=== PATIENT | male | born 1970 | race Caucasian/White ===

== ENCOUNTER 2018-01-13 12:56 | Inpatient (IN) | payer OTHER ==
[2018-01-13 14:22] VITALS: BMI 33.5
--- NOTE | 2018-01-13 19:27 | HP ---
COWS - Scale Resting Pulse: 1= OR 81-100 Sweatin=Flushed/Facial Moisture Restless Observation: 3= Extraneous Movement Pupil Size: 1= Pupils >than Normal Bone or Joint Aches: 1= Mild Discomfort Runny Nose/ Eye Tearin= Runny Nose/Eyes GI Upset > 30mins: 3= Vomiting/Diarrhea Tremor Observation: 2= Slight Tremor Visible Yawning Observation: 2= >3x During Session Anxiety or Irritability: 2=Irritable/Anxious Goose Flesh Skin: 3=Piloerection COWS Score: 22 CIWA Score - CIWA Score Nausea/Vomitin-Int. Nausea w/Dry Heave Muscle Tremors: 4-Moderate,w/Arms Extend Anxiety: 4-Mod. Anxious/Guarded Agitation: 1-Slight > Activity Paroxysmal Sweats: 4-Forehead w/Sweat Beads Orientation: 1-Uncertain about Date Tacttile Disturbances: 0-None Auditory Disturbances: 1-Very Mild Visual Disturbances: 1-Very Mild Sensitivity Headache: 1-Very Mild CIWA-Ar Total Score: 21 Admission [facility] Chief Complaint: "withdrawal, I am here to detox from Benzo, opiates (Percocet) and alcohol." Allergies/Adverse Reactions: Allergies Allergy/AdvReac Type Severity Reaction Status Date / Time penicillin V [Penicillin V] Allergy Severe Difficulty Verified 01/13/18 17:22 Breathing shellfish derived Allergy Intermediate Swelling Verified 01/13/18 17:22 History of Present Illness: 47 yo male with opiate, heroin, klonopin, alcohol dependence is here for detox . Currently quit smoking a month a go, using 14mg nicotine patch. PMHX: herniates disc with back fusion, hx of fall from [facility] in 2012 and anxiety. Last detox [facility] January 2016. Denies suicidal / homicidal ideation or suicide attempts. Longest period of sobriety 8 years. - Ebola screening Have you traveled outside of the country in the last 21 days: No Have you had contact with anyone from an Ebola affected area: No Have you been sick,other than usual withdrawal symptoms: No Do you have a fever: No - Review of Systems Constitutional: Chills, Changes in sleep, Other (weight gain 30 lbs in the past year) EENT: reports: No Symptoms Reported Respiratory: reports: No Symptoms reported Cardiac: reports: No Symptoms Reported GI: reports: Poor Fluid Intake : reports: No Symptoms Reported Musculoskeletal: reports: Back Pain (chronic back pain) Integumentary: reports: No Symptoms Reported Neuro: reports: Tremors Endocrine: reports: Unexplained Weight Gain Hematology: reports: No Symptoms Reported Psychiatric: reports: Orientated x3, Anxious Other Systems: Reviewed and Negative Patient History - Patient Medical History Hx Anemia: No Hx Asthma: No Hx Chronic Obstructive Pulmonary Disease (COPD): No Hx Cancer: No Hx Cardiac Disorders: No Hx Congestive Heart Failure: No Hx Hypertension: No Hx Hypercholesterolemia: No Hx Pacemaker: No HX Cerebrovascular Accident: No Hx Seizures: No Hx Dementia: No Hx Diabetes: No Hx Gastrointestinal Disorders: No Hx Liver Disease: No Hx Genitourinary Disorders: No Hx Sexually Transmitted Disorders: No Hx Renal Disease (ESRD): No Hx Thyroid Disease: No Hx Human Immunodeficiency Virus (HIV): No Hx Hepatitis C: No Hx Depression: Yes Hx Suicide Attempt: No Hx Bipolar Disorder: Yes Hx Schizophrenia: No - Patient Surgical History Past Surgical History: Yes Hx Neurologic Surgery: No Hx Cataract Extraction: No Hx Cardiac Surgery: No Hx Lung Surgery: No Hx Breast Surgery: No Hx Breast Biopsy: No Hx Abdominal Surgery: No Hx Appendectomy: No Hx Cholecystectomy: No Hx Genitourinary Surgery: No Hx Section: No Hx Orthopedic Surgery: Yes (LEFT SHOULDER IN 2008, back fusion Dec 2016) Other Surgical History: left shoulder, left ankle and right hand Anesthesia Reaction: No - PPD History Previous Implant?: Yes Documented Results: Negative w/proof Date: 06/29/15 Results: 0 mm PPD to be Administered?: Yes - Reproductive History Patient is a Female of Child Bearing Age (11 -55 yrs old): No - Smoking Cessation Smoking history: Former smoker Have you smoked in the past 12 months: Yes Aproximately how many cigarettes per day: 10 If you are a former smoker, when did you quit?: December 2017 Cigars Per Day: 0 Hx Chewing Tobacco Use: No Initiated information on smoking cessation: Yes 'Breaking Loose' booklet given: 01/13/18 - Substance & Tx. History Hx Alcohol Use: Yes Hx Substance Use: Yes Substance Use Type: Alcohol, Heroin, Tranquilizers Hx Substance Use Treatment: Yes ([facility] January 2016) - Substances Abused Alcohol Route: Oral Frequency: Daily Amount used: liquor- 4 pints Age of first use: 20 Date of Last Use: 01/13/18 Heroin Route: Inhalation Frequency: Daily Amount used: 10 bags Age of first use: 26 Date of Last Use: 01/11/18 Benzodiazepine (Klonopin) Route: Oral Frequency: Daily Amount used: 7 - 8 tabs Age of first use: 37 Date of Last Use: 01/13/18 Oxycontin Route: Oral Frequency: Daily Amount used: 2 tabs ( Percocets takes 15 tabs, took 15 tabs today) Age of first use: 47 Date of Last Use: 01/13/18 Family Disease History - Family Disease History Family Disease History: Other: Father (ETOH DEPENDENT AND FROM CVA DUE TO RUPTURE ANEURYSM), Mother (nov, ) Admission Physical Exam [facility] - Vital Signs Vital Signs: Vital Signs - 24 hr 01/13/18 14:20 Temperature 97.2 F L Pulse Rate 100 H Respiratory 18 Rate Blood Pressure 202/109 - Physical General Appearance: Yes: Disheveled, Tremorous, Sweating, Anxious HEENTM: Yes: EOMI, Hearing grossly Normal, Normal ENT Inspection, Normocephalic , Normal Voice, Tm's normal Respiratory: Yes: Chest Non-Tender, Lungs Clear, Normal Breath Sounds, No Respiratory Distress, No Accessory Muscle Use Neck: Yes: No masses,lesions,Nodules, Trachea in good position Breast: Yes: Breast Exam Deferred Cardiology: Yes: Regular Rhythm, Regular Rate, S1, S2 Abdominal: Yes: Normal Bowel Sounds, Non Tender, Soft, Protuberent Genitourinary: Yes: Within Normal Limits (reports no urinary symptoms) Back: Yes: Normal Inspection, Other (surgical scar present , lower back) Musculoskeletal: Yes: full range of Motion, Gait Steady, Pelvis Stable Extremities: Yes: Normal Capillary Refill, Normal Inspection, Normal Range of Motion, Non-Tender 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, Fully Oriented, Motor Strength 5/5, Depressed Affect, Other (anxious) Integumentary: Yes: Normal Color, Dry, Warm Lymphatic: Yes: Within Normal Limits - Diagnostic (1) Difficulty sleeping Current Visit: Yes Status: Chronic (2) Sedative, hypnotic or anxiolytic dependence with withdrawal, uncomplicated Current Visit: Yes Status: Acute (3) Obese Current Visit: Yes Status: Chronic Qualifiers: Body mass index: BMI 33.0-33.9 (4) Chronic low back pain Current Visit: Yes Status: Chronic Qualifiers: Back pain laterality: left Sciatica presence: without sciatica Qualified Code(s): M54.5 - Low back pain; G89.29 - Other chronic pain; G89.29 - Other chronic pain (5) Alcohol dependence with uncomplicated withdrawal Current Visit: Yes Status: Acute (6) Opioid dependence with withdrawal Current Visit: Yes Status: Acute (7) Nicotine dependence Current Visit: Yes Status: Chronic Qualifiers: Nicotine product type: cigarettes Cleared for Admission [facility] - Detox or Rehab [facility] Level of Care: Medically Managed Detox Regimen/Protocol: Methadone/Librium [facility] Breath Alcohol Content Breath Alcohol Content: 108 Urine Drug Screen - Results Drug Screen Negative: No Urine Drug Screen Results: OPI-Opiates, TCA-Tricyclic Antidepress, OXY-Oxycodone
[2018-01-13] MEDS ORDERED: MAGNESIUM CITRATE 300 ML BOTTLE PO PRN (19:37)
[2018-01-13] MEDS ORDERED: METHADONE HCL 10 MG TABLET (FOR DETOX USE ONLY) PO ONE ×2 (19:37→23:00)
[2018-01-13] MEDS ORDERED: hydrOXYzine PAMOATE 50 MG CAPSULE (FP) PO PRN (19:37)
[2018-01-13] MEDS ORDERED: chlordiazePOXIDE HCL 25 MG CAPSULE PO ONE (19:37)
[2018-01-13] MEDS ORDERED: guaiFENesin/D-METHORPHAN HB 10 ML UNIT-DOSE CUPS PO PRN (19:37)
[2018-01-13] MEDS ORDERED: MAG HYDROX/AL HYDROX/SIMETH 30 ML UNIT-DOSE CUP PO PRN (19:37)
[2018-01-13] MEDS ORDERED: LOPERAMIDE HCL 2 MG CAPSULE PO PRN (19:37)
[2018-01-13] MEDS ORDERED: NICOTINE POLACRILEX 2 MG GUM BC PRN (19:37)
[2018-01-13] MEDS ORDERED: MENTHOL/PHENOL 1 EACH UD MM PRN (19:37)
[2018-01-13] MEDS ORDERED: MAGNESIUM HYDROX 2400MG/30ML ORAL SUSPENSION 30 ML CUP PO PRN (19:37)
[2018-01-13] MEDS ORDERED: ACETAMINOPHEN 325 MG TABLET (FP) PO PRN (19:37)
[2018-01-13] MEDS ORDERED: P-EPHED 60MG/TRIPROLIDI 2.5MG TABLET PO PRN (19:37)
[2018-01-13] MEDS ORDERED: IBUPROFEN 400 MG TABLET (FP) PO PRN (19:37)
[2018-01-13] MEDS: LIDOCAINE 5% TOPICAL PATCH TP SCH (20:23)
[2018-01-13] MEDS ORDERED: TIZANIDINE HCL 2 MG TABLET PO SCH ×2 (22:00)
[2018-01-13] MEDS: chlordiazePOXIDE HCL 25 MG CAPSULE PO SCH (22:35)
[2018-01-13] MEDS: THIAMINE HCL 100 MG TABLET (FP) PO SCH (22:35)
[2018-01-13] MEDS: LIDOCAINE PATCH REMOVAL MC SCH (22:39)
[2018-01-13 23:10] LABS: URINE APPEARANCE CLEAR; URINE BILIRUBIN NEGATIVE (NEGATIVE); URINE BLOOD NEGATIVE (NEGATIVE); URINE COLOR YELLOW; URINE GLUCOSE (UA) NEGATIVE (NEGATIVE); URINE KETONE NEGATIVE (NEGATIVE); URINE LEUK ESTERASE NEGATIVE (NEGATIVE); URINE NITRITE NEGATIVE (NEGATIVE); URINE PROTEIN NEGATIVE (NEGATIVE); URINE UROBILINOGEN NEGATIVE mg/dL (0.2-1.0)
[2018-01-14] MEDS: chlordiazePOXIDE HCL 25 MG CAPSULE PO SCH ×4 (05:58→22:26)
[2018-01-14 09:51] LABS: HEMATOCRIT 44.3 % (35.4-49); HEMOGLOBIN 14.7 GM/dL (11.7-16.9); MCH 31.2 pg (25.7-33.7); MCHC 33.3 g/dl (32.0-35.9); MEAN CELL VOLUME 93.8 fl (80-96); MEAN PLT VOLUME 7.4 fl (7.5-11.1); PLATELET COUNT 220 K/MM3 (134-434); RBC 4.72 M/mm3 (4.00-5.60); RDW 13.3 % (11.9-15.9); WHITE BLOOD COUNT 10.4 K/mm3 (4.0-10.0)
[2018-01-14] MEDS ORDERED: METHADONE HCL 10 MG TABLET (FOR DETOX USE ONLY) PO SCH (10:00)
[2018-01-14] MEDS: LIDOCAINE 5% TOPICAL PATCH TP SCH (10:32)
[2018-01-14] MEDS: PRENATAL VITAMINS W/ FOLIC ACID TABLET (FP) PO SCH (10:32)
[2018-01-14] MEDS: NICOTINE 14 MG/24 HOURS TOPICAL PATCH TD SCH (10:33)
[2018-01-14 11:36] LABS: CHLORIDE 103 mmol/L (98-107); POTASSIUM 3.8 mmol/L (3.5-5.1); SODIUM 141 mmol/L (136-145)
[2018-01-14 11:47] LABS: ALBUMIN 3.6 g/dl (3.4-5.0); ALK PHOS 86 U/L (45-117); ANION GAP 6 (8-16); BILIRUBIN,TOTAL 0.4 mg/dL (0.2-1.0); BLOOD UREA NITROGEN 12 mg/dL (7-18); CALCIUM 8.9 mg/dL (8.5-10.1); CO2 32 mmol/L (21-32); CREATININE 1.1 mg/dL (0.7-1.3); GLUCOSE,RANDOM 118 mg/dL (74-106); SGOT/AST 28 U/L (15-37); SGPT/ALT 70 U/L (12-78); TOT PROT 6.2 g/dl (6.4-8.2)
[2018-01-14] MEDS: chlordiazePOXIDE HCL 25 MG CAPSULE PO PRN (13:04)
--- NOTE | 2018-01-14 13:43 | CONSULT ---
[facility] Psychiatric Consult - Data Date of interview: 01/14/18 Admission source: [facility] Identifying data: Readmission to [facility] for this 47 y/o male seeking detox treatment on 3 for alcohol,benzodiazepine and opioid dependence.Patient is ,a father of one,domiciled,currently unemployed and supported on [facility] benefits. Substance Abuse History: Confirmed by francheska in this interview.See details in current [facility] report . Smoking history: Former smoker. Have you smoked in the past 12 months: Yes. Aproximately how many cigarettes per day: 10. If you are a former smoker, when did you quit?: December 2017. Cigars Per Day: 0. Hx Chewing Tobacco Use: No. Initiated information on smoking cessation: Yes. ' Breaking Loose' booklet given: 01/13/18. - Substance & Tx. History. Hx Alcohol Use: Yes. Hx Substance Use: Yes. Substance Use Type: Alcohol, Heroin, Tranquilizers. Hx Substance Use Treatment: Yes ([facility] January 2016). - Substances Abused. Alcohol. Route: Oral. Frequency: Daily. Amount used: liquor- 4 pints. Age of first use: 20. Date of Last Use: 01/13/18. Heroin. Route: Inhalation. Frequency: Daily. Amount used: 10 bags. Age of first use: 26. Date of Last Use: 01/11/18. Benzodiazepine (Klonopin). Route: Oral. Frequency: Daily. Amount used: 7 - 8 tabs. Age of first use: 37. Date of Last Use: 01/13/18. Oxycontin. Route: Oral. Frequency: Daily. Amount used : 2 tabs ( Percocets takes 15 tabs, took 15 tabs today). Age of first use: 47. Date of Last Use: 01/13/18 Medical History: Chronic back pain,spinal fusion and a history of orthosurgery ( left shoulder,left ankle and right hand). Psychiatric History: Patient admits to one psychiatric hospitalization at [facility] in [place].Diagnosed with Bipolar Disorder.Mr Burton gets his outpatient psychiatric services at the [facility] in [facility].Maintained on lithium,klonopin and trazodone.Doses not recalled by patient.No reported history of suicide attempts. Physical/Sexual Abuse/Trauma History: Patient denies. Additional Comment: Urine Drug Screen Results: OPI-Opiates, TCA-Tricyclic Antidepressant, OXY-Oxycodone.Noted. Mental Status Exam - Mental Status Exam Alert and Oriented to: Time, Place, Person Cognitive Function: Good Patient Appearance: Well Groomed Mood: Withdrawn, Anxious, Hopeful Affect: Mood Congruent Patient Behavior: Fatigued, Appropriate, Cooperative Speech Pattern: Clear, Appropriate Voice Loudness: Normal Thought Process: Intact, Goal Oriented Thought Disorder: Not Present Hallucinations: Denies Suicidal Ideation: Denies Homicidal Ideation: Denies Insight/Judgement: Poor Sleep: Poorly, Difficulty falling asleep Appetite: Good Muscle strength/Tone: Normal Gait/Station: Normal Psychiatric Findings - Problem List ([place] 1, 2,3) (1) Alcohol dependence with uncomplicated withdrawal Current Visit: Yes Status: Acute (2) Opioid dependence with withdrawal Current Visit: Yes Status: Acute (3) Sedative, hypnotic or anxiolytic dependence with withdrawal, uncomplicated Current Visit: Yes Status: Acute (4) Nicotine dependence Current Visit: Yes Status: Acute Qualifiers: Nicotine product type: cigarettes Substance use status: uncomplicated Qualified Code(s): F17.210 - Nicotine dependence, cigarettes, uncomplicated (5) Bipolar disorder Current Visit: Yes Status: Chronic Qualifiers: Active/Remission status: currently active Comment: As per records.History of non-adherence to medications. - Initial Treatment Plan Initial Treatment Plan: Records revisited.Psychoeducation and support.Detoxification in progress.Medications : trazodone 100 mg po hs + olanzapine 15 [address] po hs. [place] withdrawn (until result of Li level).Side effects/benefits of both drugs are discussed with patient.Made aware of risk of metabolic syndrome,priapism and cardiovascular adverse events.Mr Burton consented (verbally) to this plan of care.Recent pharmacy claims (11/06/17 at [facility] # [id number]) are reviewed.Medications verified with pharmacist at [phone] : lithium 300 mg / am + 600 mg / hs - olanzapine 15 mg/hs + trazodone 100 mg/hs ( refills picked up on 01/10/19).Observation.NO scripts required at discharge from [facility].
--- NOTE | 2018-01-14 13:52 | PN ---
[facility] CIWA - CIWA Score Nausea/Vomitin-No Nausea/No Vomiting Muscle Tremors: 3 Anxiety: 4-Mod. Anxious/Guarded Agitation: 2 Paroxysmal Sweats: 3 Orientation: 0-Oriented Tacttile Disturbances: 2-Mild Itch/Numbness/Burn Auditory Disturbances: 0-None Visual Disturbances: 3-Moderate Sensitivity Headache: 0-None Present CIWA-Ar Total Score: 17 S COWS - Scale Resting Pulse: 0= [place] 80 or Below Sweatin= Chills/Flushing Restless Observation: 1= Difficult to Sit Still Pupil Size: 0= Normal to Room Light Bone or Joint Aches: 2= Severe Diffuse Aches Runny Nose/ Eye Tearin= None GI Upset > 30mins: 2= Nausea/Diarrhea Tremor Observation of Outstretched Hands: 2= Slight Tremor Visible Yawning Observation: 2= >3x During Session Anxiety or Irritability: 2=Irritable/Anxious Goose Flesh Skin: 3=Piloerection COWS Score: 15 [facility] Progress Note (SOAP) Subjective: Tremors, Anxious, Stomach cramping, Diarrhea, Sweating, Fatigue, Interrupted Sleep. Objective: PT. A & O X 3. NO ACUTE DISTRESS. 01/14/18 13:51 Vital Signs Temperature 96.8 F L 01/14/18 09:55 Pulse Rate 76 01/14/18 09:55 Respiratory Rate 20 01/14/18 09:55 Blood Pressure 149/97 01/14/18 09:55 O2 Sat by Pulse Oximetry (%) Laboratory Tests 01/13/18 01/14/18 01/14/18 22:50 07:30 07:30 WBC 10.4 H RBC 4.72 Hgb 14.7 Hct 44.3 MCV 93.8 MCH 31.2 MCHC 33.3 RDW 13.3 Plt Count 220 MPV 7.4 L Sodium 141 Potassium 3.8 Chloride 103 Carbon Dioxide 32 D Anion Gap 6 L BUN 12 Creatinine 1.1 D Creat Clearance w eGFR > 60 Random Glucose 118 H Calcium 8.9 Total Bilirubin 0.4 AST 28 D ALT 70 D Alkaline Phosphatase 86 Total Protein 6.2 L Albumin 3.6 Urine Color Yellow Urine Appearance Clear Urine pH 6.0 Ur Specific [place] 1.021 Urine Protein Negative Urine Glucose (UA) Negative Urine Ketones Negative Urine Blood Negative Urine Nitrite Negative Urine Bilirubin Negative Urine Urobilinogen Negative Ur Leukocyte Esterase Negative RPR Titer 01/14/18 07:30 WBC RBC Hgb Hct MCV MCH MCHC RDW Plt Count MPV Sodium Potassium Chloride Carbon Dioxide Anion Gap BUN Creatinine Creat Clearance w eGFR Random Glucose Calcium Total Bilirubin AST ALT Alkaline Phosphatase Total Protein Albumin Urine Color Urine Appearance Urine pH Ur Specific [place] Urine Protein Urine Glucose (UA) Urine Ketones Urine Blood Urine Nitrite Urine Bilirubin Urine Urobilinogen Ur Leukocyte Esterase RPR Titer Nonreactive LABS NOTED. Assessment: 01/14/18 13:51 WITHDRAWAL SYMPTOMS. Plan: CONTINUE DETOX.
--- NOTE | 2018-01-14 13:59 | EKG ---
Test Reason : Blood Pressure : / mmHG Vent. Rate : 082 BPM Atrial Rate : 082 BPM P-R Int : 138 ms QRS Dur : 092 ms QT Int : 376 ms P-R-T Axes : 049 065 042 degrees QTc Int : 439 ms NORMAL SINUS RHYTHM NORMAL ECG NO PREVIOUS ECGS AVAILABLE Confirmed by MD Pete, Antwon ([id number]) on 01/14/2018 1:58:22 PM Referred By: Confirmed By:Antwon Freeman MD
[2018-01-14] MEDS: THIAMINE HCL 100 MG TABLET (FP) PO SCH (22:25)
[2018-01-14] MEDS: traZODone HCL 100 MG TABLET (FP) PO SCH (22:26)
[2018-01-14] MEDS: LITHIUM CARBONATE 300 MG CAPSULE (FP) PO SCH (22:26)
[2018-01-14] MEDS: OLANZapine 7.5 MG TABLET PO SCH (22:26)
[2018-01-14] MEDS: TIZANIDINE HCL 4 MG TABLET PO SCH (22:26)
[2018-01-14] MEDS: LIDOCAINE PATCH REMOVAL MC SCH (22:27)
[2018-01-14] MEDS ORDERED: cloNIDine HCL 0.1 MG TABLET PO ONE (22:34)
[2018-01-15] MEDS: chlordiazePOXIDE HCL 25 MG CAPSULE PO SCH ×3 (05:43→17:26)
[2018-01-15] MEDS: LIDOCAINE 5% TOPICAL PATCH TP SCH (10:35)
[2018-01-15] MEDS: PRENATAL VITAMINS W/ FOLIC ACID TABLET (FP) PO SCH (10:35)
[2018-01-15] MEDS: NICOTINE 14 MG/24 HOURS TOPICAL PATCH TD SCH (10:35)
[2018-01-15] MEDS: METHADONE HCL 5 MG TABLET (FOR DETOX USE ONLY) PO SCH (10:35)
[2018-01-15] MEDS: LITHIUM CARBONATE 300 MG CAPSULE (FP) PO SCH (11:20)
--- NOTE | 2018-01-15 12:45 | PN ---
[facility] CIWA - CIWA Score Nausea/Vomitin-No Nausea/No Vomiting Muscle Tremors: 3 Anxiety: 3 Agitation: 0-Normal Activity Paroxysmal Sweats: 3 Orientation: 0-Oriented Tacttile Disturbances: 2-Mild Itch/Numbness/Burn Auditory Disturbances: 2-Mild Harshness/Frighten Visual Disturbances: 2-Mild Sensitivity Headache: 0-None Present CIWA-Ar Total Score: 15 S COWS - Scale Resting Pulse: 1= [place] 81-100 Sweatin= Chills/Flushing Restless Observation: 1= Difficult to Sit Still Pupil Size: 0= Normal to Room Light Bone or Joint Aches: 2= Severe Diffuse Aches Runny Nose/ Eye Tearin= None GI Upset > 30mins: 1= Stomach Cramp Tremor Observation of Outstretched Hands: 2= Slight Tremor Visible Yawning Observation: 1= 1-2x During Session Anxiety or Irritability: 2=Irritable/Anxious Goose Flesh Skin: 3=Piloerection COWS Score: 14 [facility] Progress Note (SOAP) Subjective: Tremors, Anxious, Interrupted Sleep, Sweating, Body Aches. Objective: PT. A & O X 3, OBSERVED AMBULATING ON UNIT. NO ACUTE DISTRESS. 01/15/18 12:43 Vital Signs Temperature 97.3 F L 01/15/18 09:53 Pulse Rate 86 01/15/18 09:53 Respiratory Rate 18 01/15/18 09:53 Blood Pressure 151/94 01/15/18 09:53 O2 Sat by Pulse Oximetry (%) Laboratory Tests 01/13/18 01/14/18 01/14/18 22:50 07:30 07:30 WBC 10.4 H RBC 4.72 Hgb 14.7 Hct 44.3 MCV 93.8 MCH 31.2 MCHC 33.3 RDW 13.3 Plt Count 220 MPV 7.4 L Sodium 141 Potassium 3.8 Chloride 103 Carbon Dioxide 32 D Anion Gap 6 L BUN 12 Creatinine 1.1 D Creat Clearance w eGFR > 60 Random Glucose 118 H Calcium 8.9 Total Bilirubin 0.4 AST 28 D ALT 70 D Alkaline Phosphatase 86 Total Protein 6.2 L Albumin 3.6 Urine Color Yellow Urine Appearance Clear Urine pH 6.0 Ur Specific [place] 1.021 Urine Protein Negative Urine Glucose (UA) Negative Urine Ketones Negative Urine Blood Negative Urine Nitrite Negative Urine Bilirubin Negative Urine Urobilinogen Negative Ur Leukocyte Esterase Negative RPR Titer 01/14/18 07:30 WBC RBC Hgb Hct MCV MCH MCHC RDW Plt Count MPV Sodium Potassium Chloride Carbon Dioxide Anion Gap BUN Creatinine Creat Clearance w eGFR Random Glucose Calcium Total Bilirubin AST ALT Alkaline Phosphatase Total Protein Albumin Urine Color Urine Appearance Urine pH Ur Specific [place] Urine Protein Urine Glucose (UA) Urine Ketones Urine Blood Urine Nitrite Urine Bilirubin Urine Urobilinogen Ur Leukocyte Esterase RPR Titer Nonreactive labs noted. Assessment: 01/15/18 12:43 WITHDRAWAL SYMPTOMS. Plan: CONTINUE DETOX. CLONIDINE, 0.1 MG PO X 1 FOR ELEVATED BP.
[2018-01-15] MEDS ORDERED: cloNIDine HCL 0.1 MG TABLET PO ONE (13:30)
[2018-01-15] MEDS: OLANZapine 7.5 MG TABLET PO SCH (22:21)
[2018-01-15] MEDS: THIAMINE HCL 100 MG TABLET (FP) PO SCH (22:21)
[2018-01-15] MEDS: chlordiazePOXIDE 5 MG CAPSULE PO SCH (22:21)
[2018-01-15] MEDS: TIZANIDINE HCL 4 MG TABLET PO SCH (22:22)
[2018-01-15] MEDS: traZODone HCL 100 MG TABLET (FP) PO SCH (22:22)
[2018-01-15] MEDS: LIDOCAINE PATCH REMOVAL MC SCH (22:22)
[2018-01-16] MEDS: chlordiazePOXIDE 5 MG CAPSULE PO SCH ×3 (06:00→16:21)
[2018-01-16] MEDS: chlordiazePOXIDE HCL 25 MG CAPSULE PO PRN (08:44)
[2018-01-16] MEDS: METHADONE HCL 5 MG TABLET (FOR DETOX USE ONLY) PO SCH (10:29)
[2018-01-16] MEDS: PRENATAL VITAMINS W/ FOLIC ACID TABLET (FP) PO SCH (10:29)
[2018-01-16] MEDS: LIDOCAINE 5% TOPICAL PATCH TP SCH (10:30)
[2018-01-16] MEDS: NICOTINE 14 MG/24 HOURS TOPICAL PATCH TD SCH (10:30)
--- NOTE | 2018-01-16 12:36 | PN ---
[facility] Progress Note (SOAP) Subjective: Body Aches, Anxious, Diarrhea, Sweating. Objective: PT. A & O X 3, OBSERVED AMBULATING ON UNIT. NO ACUTE DISTRESS. PT. DENIES CHEST PAIN. 01/16/18 12:32 Vital Signs Temperature 96.2 F L 01/16/18 09:24 Pulse Rate 68 01/16/18 09:24 Respiratory Rate 18 01/16/18 09:24 Blood Pressure 156/97 01/16/18 09:24 O2 Sat by Pulse Oximetry (%) Laboratory Tests 01/13/18 01/14/18 01/14/18 22:50 07:30 07:30 WBC 10.4 H RBC 4.72 Hgb 14.7 Hct 44.3 MCV 93.8 MCH 31.2 MCHC 33.3 RDW 13.3 Plt Count 220 MPV 7.4 L Sodium 141 Potassium 3.8 Chloride 103 Carbon Dioxide 32 D Anion Gap 6 L BUN 12 Creatinine 1.1 D Creat Clearance w eGFR > 60 Random Glucose 118 H Calcium 8.9 Total Bilirubin 0.4 AST 28 D ALT 70 D Alkaline Phosphatase 86 Total Protein 6.2 L Albumin 3.6 Urine Color Yellow Urine Appearance Clear Urine pH 6.0 Ur Specific [place] 1.021 Urine Protein Negative Urine Glucose (UA) Negative Urine Ketones Negative Urine Blood Negative Urine Nitrite Negative Urine Bilirubin Negative Urine Urobilinogen Negative Ur Leukocyte Esterase Negative [place] RPR Titer 01/14/18 01/15/18 07:30 06:00 WBC RBC Hgb Hct MCV MCH MCHC RDW Plt Count MPV Sodium Potassium Chloride Carbon Dioxide Anion Gap BUN Creatinine Creat Clearance w eGFR Random Glucose Calcium Total Bilirubin AST ALT Alkaline Phosphatase Total Protein Albumin Urine Color Urine Appearance Urine pH Ur Specific [place] Urine Protein Urine Glucose (UA) Urine Ketones Urine Blood Urine Nitrite Urine Bilirubin Urine Urobilinogen Ur Leukocyte Esterase [place] 0.3 L RPR Titer Nonreactive LABS NOTED. Assessment: 01/16/18 12:33 WITHDRAWAL SYMPTOMS. Plan: CONTINUE DETOX. CLONIDINE, 0.1 MG PO X 1 FOR ELEVATED BP AND FOR DETOX SYMPTOMS.
[2018-01-16] MEDS ORDERED: cloNIDine HCL 0.1 MG TABLET PO ONE (13:00)
[2018-01-16] MEDS ORDERED: cloNIDine HCL 0.1 MG TABLET PO PRN (22:04)
[2018-01-16] MEDS: LIDOCAINE PATCH REMOVAL MC SCH (22:25)
[2018-01-16] MEDS: THIAMINE HCL 100 MG TABLET (FP) PO SCH (22:25)
[2018-01-16] MEDS: TIZANIDINE HCL 4 MG TABLET PO SCH (22:26)
[2018-01-16] MEDS: traZODone HCL 100 MG TABLET (FP) PO SCH (22:26)
[2018-01-16] MEDS: OLANZapine 7.5 MG TABLET PO SCH (22:26)
[2018-01-16] MEDS: chlordiazePOXIDE HCL 10 MG CAPSULE PO SCH (22:26)
[2018-01-17] MEDS: chlordiazePOXIDE HCL 10 MG CAPSULE PO SCH ×2 (05:58→10:12)
[2018-01-17 09:46] VITALS: PULSE 66
[2018-01-17] MEDS ORDERED: METHADONE HCL 10 MG TABLET (FOR DETOX USE ONLY) PO SCH (10:00)
[2018-01-17] MEDS: NICOTINE 14 MG/24 HOURS TOPICAL PATCH TD SCH (10:12)
[2018-01-17] MEDS: LIDOCAINE 5% TOPICAL PATCH TP SCH (10:12)
[2018-01-17] MEDS: PRENATAL VITAMINS W/ FOLIC ACID TABLET (FP) PO SCH (10:12)
[2018-01-17] MEDS ORDERED: PNEUMOC 13-VAL CONJ-DIP CRM/PF 0.5 ML DISP.SYRIN IM ONE (12:00)
[2018-01-17] MEDS ORDERED: FLU VACCINE QUAD 60 MCG/0.5 ML (MDV 17-18) IM ONE (12:00)
[2018-01-17] MEDS ORDERED: PNEUMOCOCCAL 23 VACCINE 0.5 ML VIAL IM ONE (12:00)
[2018-01-17] MEDS ORDERED: cloNIDine HCL 0.1 MG TABLET PO ONE (12:00)
--- NOTE | 2018-01-17 13:30 | DS ---
[facility] Detox Discharge Summary Admission Date: 01/13/18 Discharge Date: 01/17/18 - History Present History: Alcohol Dependence, Opioid Dependence, Sedative Dependence Additional Comments: PATIENT HAS PERSONAL ISSUE TO ATTEND TO AND DOES NOT WISH TO STAY TO COMPLETE DETOX REGIMEN. RISKS OF LEAVING AGAINST MEDICAL ADVICE AND PRIOR TO COMPLETION OF DETOX REGIMEN EXPLAINED TO PATIENT. PATIENT ADVISED TO GO IMMEDIATELY TO NEAREST ER SHOULD ANY INTOLERABLE DETOX SYMPTOMS DEVELOP AT ANY TIME. PATIENT LEFT DETOX UNIT IN STABLE MEDICAL CONDITION. Pertinent Past History: Bipolar Disorder, Nicotine Dependence, Difficulty Sleeping, Chronic Low Back Pain. - Physical Exam Results Vital Signs: Vital Signs Temperature 97.0 F L 01/17/18 09:46 Pulse Rate 66 01/17/18 09:46 Respiratory Rate 20 01/17/18 09:46 Blood Pressure 149/96 01/17/18 09:46 O2 Sat by Pulse Oximetry (%) Pertinent Admission Physical Exam Findings: WITHDRAWAL SYMPTOMS. Laboratory Tests 01/13/18 01/14/18 01/14/18 22:50 07:30 07:30 WBC 10.4 H RBC 4.72 Hgb 14.7 Hct 44.3 MCV 93.8 MCH 31.2 MCHC 33.3 RDW 13.3 Plt Count 220 MPV 7.4 L Sodium 141 Potassium 3.8 Chloride 103 Carbon Dioxide 32 D Anion Gap 6 L BUN 12 Creatinine 1.1 D Creat Clearance w eGFR > 60 Random Glucose 118 H Calcium 8.9 Total Bilirubin 0.4 AST 28 D ALT 70 D Alkaline Phosphatase 86 Total Protein 6.2 L Albumin 3.6 Urine Color Yellow Urine Appearance Clear Urine pH 6.0 Ur Specific [place] 1.021 Urine Protein Negative Urine Glucose (UA) Negative Urine Ketones Negative Urine Blood Negative Urine Nitrite Negative Urine Bilirubin Negative Urine Urobilinogen Negative Ur Leukocyte Esterase Negative [place] RPR Titer 01/14/18 01/15/18 07:30 06:00 WBC RBC Hgb Hct MCV MCH MCHC RDW Plt Count MPV Sodium Potassium Chloride Carbon Dioxide Anion Gap BUN Creatinine Creat Clearance w eGFR Random Glucose Calcium Total Bilirubin AST ALT Alkaline Phosphatase Total Protein Albumin Urine Color Urine Appearance Urine pH Ur Specific [place] Urine Protein Urine Glucose (UA) Urine Ketones Urine Blood Urine Nitrite Urine Bilirubin Urine Urobilinogen Ur Leukocyte Esterase [place] 0.3 L RPR Titer Nonreactive LABS NOTED. - Treatment Hospital Course: Detoxed Safely - Medication Discharge Medications: Ambulatory Orders Cricket Carbonate [Eskalith -] 300 mg PO BID 02/21/16 Tizanidine HCl [Zanaflex] 8 mg PO HS 02/21/16 [place] Carbonate [Eskalith -] 300 mg PO BID #60 capsule 02/22/16 Risperidone [Risperdal -] 2 mg PO HS #30 tablet 02/22/16 - Diagnosis (1) Alcohol dependence with uncomplicated withdrawal Current Visit: Yes Status: Acute (2) Nicotine dependence Current Visit: Yes Status: Acute Qualifiers: Nicotine product type: cigarettes Substance use status: uncomplicated Qualified Code(s): F17.210 - Nicotine dependence, cigarettes, uncomplicated (3) Opioid dependence with withdrawal Current Visit: Yes Status: Acute (4) Sedative, hypnotic or anxiolytic dependence with withdrawal, uncomplicated Current Visit: Yes Status: Acute (5) Difficulty sleeping Current Visit: Yes Status: Chronic (6) Obese Current Visit: Yes Status: Chronic Qualifiers: Obesity type: unspecified obesity type Obesity classification: adult class 1 (BMI 30 - 34.9) Serious obesity comorbidity presence: unspecified whether serious comorbidity present Body mass index: BMI 33.0-33.9 Qualified Code(s) : E66.9 - Obesity, unspecified; Z68.33 - Body mass index (BMI) 33.0-33.9, adult ; Z68.33 - Body mass index (BMI) 33.0-33.9, adult (7) Chronic low back pain Current Visit: Yes Status: Chronic Qualifiers: Back pain laterality: left Sciatica presence: without sciatica Qualified Code(s): M54.5 - Low back pain; G89.29 - Other chronic pain; G89.29 - Other chronic pain (8) Bipolar disorder Current Visit: Yes Status: Chronic Qualifiers: Active/Remission status: remission status unspecified Qualified Code(s): F31.9 - Bipolar disorder, unspecified - AMA Did Patient Leave Against Medical Advice: Yes (PT HAS PERSONAL ISSUE AND DOES NOT WISH TO STAY TO COMPLETE DETOX REGIMEN.)
[2018-01-17 14:12] VITALS: BP 153/99; TEMP 98.6
[2018-01-18] MEDS ORDERED: METHADONE HCL 5 MG TABLET (FOR DETOX USE ONLY) PO SCH (06:00)
== END 2018-01-17 13:33 | disposition left against medical advice (07) | DRG 770 ==
LOC: YASAS 12:56 → Y3N 17:47
PROVIDERS: ADMIT Internal Medicine; ATTEND Internal Medicine
PROC: HZ2ZZZZ Detoxification Services for Substance Abuse Treatment (ICD-10-PCS; principal; 2018-01-13)
DX: F11.23 Opioid dependence with withdrawal (principal); F13.230 Sedative, hypnotic or anxiolytic dependence with withdrawal, uncomplicated; F10.230 Alcohol dependence with withdrawal, uncomplicated; F31.9 Bipolar disorder, unspecified; M54.5 Low back pain; G89.29 Other chronic pain; E66.9 Obesity, unspecified; Z68.33 Body mass index [BMI] 33.0-33.9, adult; G47.9 Sleep disorder, unspecified
CPT/HCPCS: 36415; 80053; 80178; 81003; 85027; 86593; 90688; 90732; 93005; 93010; G0009; J0735

== ENCOUNTER 2024-08-12 11:07 | Inpatient (IN) | payer OTHER ==
[2024-08-12] MEDS ORDERED: PROPOFOL 1,000,000 MCG/100 ML VIAL IVPB SCH (11:45)
[2024-08-12 12:05] LABS: HEMATOCRIT 46.7 % (35.4-49); HEMOGLOBIN 15.8 GM/dL (11.7-16.9); MCH 31.7 pg (25.7-33.7); MCHC 33.9 g/dl (32.0-35.9); MEAN CELL VOLUME 93.4 fl (80-96); MEAN PLT VOLUME 7.4 fl (7.5-11.1); PLATELET COUNT 280 10^3/uL (134-434); RDW 14.1 % (11.9-15.9); WHITE BLOOD COUNT 20.5 K/mm3 (4.0-10.0)
[2024-08-12 12:07] LABS: ARTERIAL BLOOD GAS BASE EXCESS -0.1 mmol/L (-2-2); ARTERIAL BLOOD GAS PO2 171.9 mmHg (80-100); ARTERIAL BLOOD GAS pH 7.308 (7.350-7.450)
[2024-08-12 12:10] LABS: VENT MODE A/C; VENT RATE 20
[2024-08-12] MEDS: PROPOFOL 1,000,000 MCG/100 ML VIAL IVPB SCH (12:11)
[2024-08-12 12:12] LABS: ALLENS TEST POSITIVE
[2024-08-12 12:18] LABS: INR 0.92 (0.83-1.09); PROTHROMBIN TIME (PATIENT) 10.4 SEC (9.7-13.0)
[2024-08-12 12:30] LABS: CHLORIDE 103 mmol/L (98-107); POTASSIUM 4.1 mmol/L (3.5-5.1); SODIUM 140 mmol/L (136-145)
[2024-08-12 12:32] LABS: CALCIUM 9.1 mg/dL (8.5-10.1)
[2024-08-12 12:33] LABS: ALBUMIN 3.9 g/dl (3.4-5.0); ANION GAP 9 mmol/L (4-13); BLOOD UREA NITROGEN 10.6 mg/dL (7-18); CO2 28 mmol/L (21-32); GLUCOSE,RANDOM 189 mg/dL (74-106); MAGNESIUM 2.3 mg/dL (1.8-2.4)
[2024-08-12 12:36] LABS: SGOT/AST 42 U/L (15-37); SGPT/ALT 77 U/L (13-61)
[2024-08-12 12:37] LABS: BILIRUBIN,TOTAL 0.4 mg/dL (0.2-1); TOT PROT 7.1 g/dl (6.4-8.2)
[2024-08-12 12:39] LABS: ALK PHOS 92 U/L (45-117)
[2024-08-12 13:31] LABS: COCAINE, UR NEGATIVE (NEGATIVE); URINE AMPHETAMINES NEGATIVE (NEGATIVE); URINE BARBITURATES NEGATIVE (NEGATIVE)
[2024-08-12 13:32] LABS: METHADONE, UR NEGATIVE (NEGATIVE); PHENCYCLIDINE,URINE NEGATIVE (NEGATIVE)
[2024-08-12] MEDS ORDERED: CEFTRIAXONE 1 GM in DEXTROSE 5%-WATER - 50 ML IVPB SCH (13:45)
[2024-08-12] MEDS ORDERED: CEFTRIAXONE 1,000 MG in DEXTROSE 5%-WATER - 50 ML IVPB SCH (13:45)
[2024-08-12 14:16] LABS: OPIATES, URI POSITIVE (NEGATIVE); URINE BENZODIAZEPINES POSITIVE (NEGATIVE)
[2024-08-12 14:31] VITALS: BMI 30.6
[2024-08-12] MEDS: methylPREDNISolone NA SUCC 40 MG/1 ML VIAL IVPUSH SCH (15:33)
[2024-08-12] MEDS: SODIUM CHLORIDE 1,000 ML IV SCH (15:33)
[2024-08-12] MEDS: CEFTRIAXONE 1 GM in DEXTROSE 5%-WATER - 50 ML IVPB SCH (15:33)
[2024-08-12] MEDS: ENOXAPARIN NA (PORCINE) 40 MG/0.4 ML DISP.SYRIN SQ SCH (15:33)
[2024-08-12] MEDS: ALBUTEROL SO4 2.5/IPRATROPIUM 0.5 INH SOL 3 ML VIAL.NEB. NEB SCH (16:08)
[2024-08-12 19:59] LABS: EPI CELLS 18 /uL (0-25.1); HYALINE CASTS 2 /uL (0-3.1); PH,URINE 5.5 (5.0-8.0); URINE APPEARANCE CLEAR; URINE BACTERIA 4 /uL (0-1359); URINE BILIRUBIN NEGATIVE (NEGATIVE); URINE COLOR YELLOW; URINE GLUCOSE (UA) TRACE (NEGATIVE); URINE KETONE NEGATIVE (NEGATIVE); URINE LEUK ESTERASE NEGATIVE (NEGATIVE); URINE NITRITE NEGATIVE (NEGATIVE); URINE PROTEIN 2+ (NEGATIVE); URINE RBC 14 /uL (0-23.9); URINE WBC 9 /uL (0-25.8)
[2024-08-12 20:25] LABS: URINE CRYSTALS FEW CALCIUM OXALATES /hpf
[2024-08-12] MEDS: DEXMEDETOMIDINE PREMIX 400 MCG/100 ML BAG IVPB SCH (22:00)
[2024-08-12] MEDS: MUPIROCIN 2% TOPICAL OINTMENT FOR DECOLONIZATION NS SCH (22:28)
[2024-08-12] MEDS: FENTANYL CITRATE/PF 50 MCG/ML VIAL IVPUSH PRN (22:43)
[2024-08-12] MEDS: CHLORHEXIDINE GLUCONATE 4% CLEANSER FOR DECOLONIZATION TP SCH (22:44)
[2024-08-13 05:39] VITALS: RESP 20
[2024-08-13 06:03] VITALS: BP 115/63; PULSE 55; TEMP 98.5
[2024-08-13] MEDS: SODIUM CHLORIDE 0.9% 500 ML INFUS.BAG IV ONE ×2 (06:54)
[2024-08-13 07:44] LABS: HEMATOCRIT 42.7 % (35.4-49); HEMOGLOBIN 14.4 GM/dL (11.7-16.9); MCH 31.7 pg (25.7-33.7); MCHC 33.7 g/dl (32.0-35.9); MEAN CELL VOLUME 94.2 fl (80-96); MEAN PLT VOLUME 7.8 fl (7.5-11.1); PLATELET COUNT 168 10^3/uL (134-434); RBC 4.54 M/mm3 (4.00-5.60); WHITE BLOOD COUNT 21.2 K/mm3 (4.0-10.0)
[2024-08-13 08:01] LABS: POTASSIUM 4.3 mmol/L (3.5-5.1)
[2024-08-13 08:10] LABS: ALBUMIN 3.3 g/dl (3.4-5.0); BLOOD UREA NITROGEN 21.1 mg/dL (7-18); CALCIUM 8.6 mg/dL (8.5-10.1); MAGNESIUM 2.2 mg/dL (1.8-2.4)
[2024-08-13 08:13] LABS: BILIRUBIN,TOTAL 0.7 mg/dL (0.2-1); CREATININE 0.9 mg/dL (0.55-1.3); PHOSPHOROUS 3.3 mg/dL (2.5-4.9)
[2024-08-13 08:58] LABS: ANISOCYTOSIS 0; MACROCYTOSIS 0
== END 2024-08-13 10:45 | disposition left against medical advice (07) | DRG 133 ==
LOC: JER 11:07 → JERBED 12:27 → JICU 13:09
PROVIDERS: ADMIT Internal Medicine; ATTEND Internal Medicine
PROC: 5A1935Z Respiratory Ventilation, Less than 24 Consecutive Hours (ICD-10-PCS; principal; 2024-08-12)
PROC: 0BH17EZ Insertion of Endotracheal Airway into Trachea, Via Natural or Artificial Opening (ICD-10-PCS; 2024-08-12)
DX: J96.01 Acute respiratory failure with hypoxia (principal); J69.0 Pneumonitis due to inhalation of food and vomit; F10.20 Alcohol dependence, uncomplicated; F11.20 Opioid dependence, uncomplicated; J44.9 Chronic obstructive pulmonary disease, unspecified; F17.210 Nicotine dependence, cigarettes, uncomplicated; F41.9 Anxiety disorder, unspecified; J98.11 Atelectasis; R74.01 Elevation of levels of liver transaminase levels; J96.02 Acute respiratory failure with hypercapnia
CPT/HCPCS: 0241U-QW; 31500; 36415; 36600; 70450-TC; 71045-TC-FY; 71250-TC; 72125-TC; 80053; 80307; 81003; 82803; 83735; 84100; 84484; 85025; 85610; 86850; 86900; 86901; 87086; 93005; 93010; 94640; 99285-25

== ENCOUNTER 2024-12-18 18:53 | Emergency (ER) | payer OTHER ==
[2024-12-18 19:02] VITALS: RESP 18; BMI 31.1
[2024-12-18] MEDS ORDERED: LIDOCAINE 4% PATCH TP ONE (20:26)
[2024-12-18] MEDS: LIDOCAINE 4% PATCH TP ONE (20:54)
[2024-12-18] MEDS ORDERED: ALBUTEROL SO4 2.5/IPRATROPIUM 0.5 INH SOL 3 ML VIAL.NEB. NEB ONE (21:11)
[2024-12-18] MEDS: ALBUTEROL SO4 2.5/IPRATROPIUM 0.5 INH SOL 3 ML VIAL.NEB. NEB SCH (21:25)
[2024-12-18] MEDS: ACETAMINOPHEN 1000 MG/100 ML BAG IVPB ONE (21:52)
[2024-12-18] MEDS ORDERED: ACETAMINOPHEN 500 MG TABLET (FP) ONE (22:16)
[2024-12-18 22:22] LABS: ALBUMIN 4.5 g/dl (3.4-5.0); CALCIUM 9.5 mg/dL (8.5-10.1)
[2024-12-18 22:23] LABS: MAGNESIUM 2.4 mg/dL (1.8-2.4)
[2024-12-18] MEDS: ACETAMINOPHEN 500 MG TABLET (FP) PO ONE (22:25)
[2024-12-18 22:27] LABS: BILIRUBIN,TOTAL 0.8 mg/dL (0.2-1); TOT PROT 7.8 g/dl (6.4-8.2)
[2024-12-18 22:28] LABS: INR 1.09 (0.83-1.09); PROTHROMBIN TIME (PATIENT) 12.5 SEC (9.7-13.0)
[2024-12-18 22:31] LABS: ACTIVATED PTT 35.3 SECONDS (25.2-36.5)
[2024-12-18 22:35] LABS: N-TERMINAL BNP 30.9 pg/ml (5-125)
[2024-12-18 22:38] LABS: BLOOD UREA NITROGEN 19.8 mg/dL (7-18)
[2024-12-18 22:54] LABS: BASO % 1.2 % (0-2.0); EOS % 0.9 % (0-4.5); HEMATOCRIT 46.5 % (35.4-49); HEMOGLOBIN 15.7 GM/dL (11.7-16.9); LYMPH % 39.4 % (8-40); MCH 31.4 pg (25.7-33.7); MCHC 33.7 g/dl (32.0-35.9); MEAN CELL VOLUME 93.1 fl (80-96); MONO % 6.9 % (3.8-10.2); NEUT % 51.6 % (42.8-82.8); PLATELET COUNT 197 10^3/uL (134-434); RBC 4.99 M/mm3 (4.00-5.60); RDW 13.5 % (11.9-15.9); WHITE BLOOD COUNT 8.7 K/mm3 (4.0-10.0)
[2024-12-18] MEDS ORDERED: ALBUTEROL SO4 HFA INHALER IH ONE (23:27)
[2024-12-18] MEDS ORDERED: KETOROLAC TROMETHAMINE 30 MG/1 ML VIAL ONE (23:27)
[2024-12-18] MEDS: ALBUTEROL SO4 HFA INHALER IH ONE (23:32)
[2024-12-18] MEDS: KETOROLAC TROMETHAMINE 30 MG/1 ML VIAL IM ONE (23:32)
[2024-12-18] MEDS ORDERED: DEXAMETHASONE 4 MG TABLET (FP) ONE (23:34)
[2024-12-18] MEDS: DEXAMETHASONE 4 MG TABLET (FP) PO ONE (23:36)
[2024-12-19 00:39] VITALS: BP 112/62; PULSE 85; TEMP 97.6
[2024-12-19] MEDS ORDERED: LIDOCAINE PATCH REMOVAL MC SCH (08:00)
== END 2024-12-19 06:33 | disposition home or self-care (01) ==
LOC: JER 18:53
PROC: 3E0233Z Introduction of Anti-inflammatory into Muscle, Percutaneous Approach (ICD-10-PCS; principal; 2024-12-18)
PROC: 3E0F7GC Introduction of Other Therapeutic Substance into Respiratory Tract, Via Natural or Artificial Opening (ICD-10-PCS; 2024-12-18)
DX: M54.50 Low back pain, unspecified (principal); R06.2 Wheezing; R53.1 Weakness; R19.7 Diarrhea, unspecified; Z20.822 Contact with and (suspected) exposure to COVID-19
CPT/HCPCS: 0241U-QW; 36415; 71046-TC-FY; 80053; 83735; 83880; 84484; 85025; 85610; 85730; 93005; 93010; 99285-25